=== PATIENT | female | born 1940 | race Caucasian/White ===

== ENCOUNTER 2023-08-02 18:05 | Emergency (ER) | payer MEDICARE, OTHER ==
[2023-08-02] MEDS ORDERED: predniSONE 20 MG Tab PO ONE (20:48)
[2023-08-02] MEDS ORDERED: traMADol 50 MG Tab PO ONE (20:48)
[2023-08-02 21:26] VITALS: BP 151/70; PULSE 70
== END 2023-08-02 21:20 | disposition home or self-care (01) ==
LOC: JD.ED 18:05
DX: M25.561 Pain in right knee (principal); M71.21 Synovial cyst of popliteal space [Baker], right knee; E78.00 Pure hypercholesterolemia, unspecified; Z79.899 Other long term (current) drug therapy; Z90.710 Acquired absence of both cervix and uterus
CPT/HCPCS: 93971-26-RT; 93971-RT; 99283; 99284; A9270-GY; J7512